=== PATIENT | male | born 1990 | race Asian ===

== ENCOUNTER 2019-03-24 12:58 | Inpatient (IN) | payer OTHER ==
[~2019-03-24] VITALS: Ht 175.3 cm; Wt 73.0 kg
[2019-03-24 13:21] VITALS: Ht 175.3 cm; Wt 73.0 kg
[2019-03-24 13:37] LABS: BASOPHIL % 0.3 % (0-2); PLATELET COUNT 144 x10^3mcL (130-400); RED CELL DISTRIBUTION WIDTH 13.4 % (11.5-14.5)
[2019-03-24 13:49] LABS: CALCIUM 9.2 mg/dL (8.5-10.1); CARBON DIOXIDE 30.1 mmol/L (21-32); CHLORIDE SERUM 96 mmol/L (98-107); CREATININE SERUM 0.8 mg/dL (0.7-1.3); GFR1 > 60 mL/min; GLUCOSE SERUM 82 mg/dL (74-106); POTASSIUM SERUM 4.1 mmol/L (3.5-5.1); SODIUM SERUM 135 mmol/L (136-145)
[2019-03-24 13:54] LABS: ALBUMIN 4.4 g/dL (3.4-5.0); ALKALINE PHOSPHATASE 43 U/L (46-116); ALT/SGPT 26 U/L (16-63); AST/SGOT 14 U/L (15-37)
[2019-03-24 13:59] LABS: TOTAL PROTEIN, SERUM 8.3 g/dL (6.4-8.2)
[2019-03-24 14:42] LABS: microscopic required? YES; urine erythrocyte TRACE (NEGATIVE)
[2019-03-24 17:07] LABS: PHOSPHOROUS 4.4 mg/dL (2.5-4.9)
[2019-03-24 17:10] LABS: AMPHETAMINE QUAL UR NONE DETECTED (See below)
[2019-03-24 17:20] LABS: T3 TOTAL 0.76 ng/mL
[2019-03-24 17:41] LABS: FREE T4 1.48 ng/dL (0.76-1.46); FREE THYROXINE INDEX 3.5 ug/dL (1.4-4.5); T4(THYROXINE) 9.1 ug/dL (4.7-13.3)
[2019-03-24 19:20] VITALS: BP 122/66
[2019-03-24 22:22] VITALS: BP 114/62
[2019-03-25 05:45] VITALS: BP 101/53
[2019-03-25 06:15] LABS: BASOPHIL % 0.3 % (0-2); RED CELL DISTRIBUTION WIDTH 13.1 % (11.5-14.5)
[2019-03-25 06:45] LABS: CALCIUM 8.4 mg/dL (8.5-10.1); CARBON DIOXIDE 27.1 mmol/L (21-32); CHLORIDE SERUM 98 mmol/L (98-107); CREATININE SERUM 0.9 mg/dL (0.7-1.3); GFR1 > 60 mL/min; GLUCOSE SERUM 100 mg/dL (74-106); MAGNESIUM 2.1 mg/dL (1.8-2.4); PHOSPHOROUS 4.8 mg/dL (2.5-4.9); POTASSIUM SERUM 4.4 mmol/L (3.5-5.1); SODIUM SERUM 133 mmol/L (136-145)
[2019-03-25 07:02] LABS: PLATELET COUNT 119 x10^3mcL (130-400)
[2019-03-25 08:03] VITALS: BP 103/57
[2019-03-25 10:48] VITALS: BP 103/57
[2019-03-25 12:13] VITALS: BP 98/61
== END 2019-03-25 16:35 | disposition home or self-care (01) | DRG 339 ==
LOC: ED 12:58 → MU 16:40
PROVIDERS: Emergency Medicine; Surgery; ADMIT Family Medicine
PROC: 0DTJ4ZZ Resection of Appendix, Percutaneous Endoscopic Approach (ICD-10-PCS; principal; 2019-03-24 17:30)
DX: K35.32 Acute appendicitis with perforation, localized peritonitis, and gangrene, without abscess (principal); E87.1 Hypo-osmolality and hyponatremia; E87.8 Other disorders of electrolyte and fluid balance, not elsewhere classified
CPT/HCPCS: 84439; 90658; G0378; J1885; J2175; J2250; J2405; J2543; J3010; J3490; J7030